=== PATIENT | female | born 1985 | race African-American/Black ===

== ENCOUNTER 2017-02-10 17:45 | Emergency (ER) | payer OTHER ==
[~2017-02-10] VITALS: Ht 171.4 cm; Wt 100.8 kg
[~2017-02-10 17:45] MED LIST: "\\\"ANTIBIOTIC\\\""; ADIPEX-P37.5 M1 PO; ALBUTEROL SULF8.5 GM IH; BENADRYL25 MG PO; BUTALB-APAP-CA1 EAC1 PO; CHOLESTYRAMINE P4 GM PO; ENDOCET 5-3251 EACH PO; EXCEDRIN MIGRA1 EAC3 PO; FIORICET,ESG1 TABLET PO; FLEXERIL10 MG PO; HYCODAN SYRUP480 ML PO; HYDROCODON-ACE1 EAC7 PO; HYDROXYZINE HCL10 MG PO; INNOPRAN XL120 MG PO; MUCUS RELIEF600 M1 PO; NOHOMEMEDS; NORCO 5/3251 TABLET PO; PERCOCET 5/31 TABLET PO; PREDNISONE20 MG PO; PRENATAL TABLE1 EAC3 PO; PROMETHAZINE HC25 M1 PO; ROBITUSSIN NIG118 ML PO; ROXICODONE5 MG PO; SERTRALINE HCL100 MG PO; SYNTHROID100 MCG PO; TESSALON PERLE100 MG PO; TRAZODONE HCL100 MG PO; TYLENOL EXTRA500 MG PO; ZANTAC150 MG PO; ZOLOFT; [UNRECOGNIZED DRUG - REMARK]
[2017-02-10] MEDS ORDERED: VALIUM5 MG PO (20:26)
[2017-02-10 21:00] VITALS: BP 124/81
== END 2017-02-10 21:08 | disposition home or self-care (01) ==
LOC: EME 17:45
DX: M62.838 Other muscle spasm (principal); M54.2 Cervicalgia; M54.9 Dorsalgia, unspecified; V99.XXXA Unspecified transport accident, initial encounter
CPT/HCPCS: 99281; 99283

== ENCOUNTER 2017-06-06 07:53 | Day surgery (SDC) | payer OTHER ==
[~2017-06-06] VITALS: Ht 170.2 cm; Wt 101.6 kg
[~2017-06-06 07:53] MED LIST changes: +MULTIPLE VITAM1 EAC1 PO; +VALIUM5 MG PO
[2017-06-06 08:17] VITALS: BP 136/83
[2017-06-06 13:36] VITALS: BP 142/93
[2017-06-06 15:20] VITALS: BP 133/88
[2017-06-06 20:39] VITALS: BP 155/98
[2017-06-07 00:57] VITALS: BP 131/84
[2017-06-07 04:15] VITALS: BP 125/72
[2017-06-07 06:29] LABS: HEMATOCRIT 35.6 % (36.0-46.0); MCH 27.5 PG (29.0-34.0); MCHC 33.4 G/DL (30.0-36.0); MCV 82.4 FL (83-99); MEAN PLAT.VOLUME 10.4 uM^3 (9.5-12.4); PLATELET COUNT 223 K/uL (156-360); RBC DIS.WIDTH-CV 13.3 % (11.8-14.6); RBC DIS.WIDTH-SD 40.6 % (39-53); RED BLOOD COUNT 4.32 M/uL (3.80-5.20); WHITE BLOOD COUNT 14.2 K/uL (4.1-10.2)
[2017-06-07 07:20] VITALS: BP 129/78
[2017-06-07] MEDS ORDERED: ENDOCET 5-3251 EACH PO (10:39)
== END 2017-06-07 11:30 | disposition home or self-care (01) ==
LOC: SDC → 2SOUTH 12:01 → ENRESERV 12:20 → 2EASTP 13:27 → SDC 14:04 → 2EASTP 06-07 11:30
PROVIDERS: Obstetrics & Gynecology Obstetrics
DX: N84.0 Polyp of corpus uteri (principal); D25.9 Leiomyoma of uterus, unspecified; N94.6 Dysmenorrhea, unspecified; N92.0 Excessive and frequent menstruation with regular cycle; K66.0 Peritoneal adhesions (postprocedural) (postinfection); B37.49 Other urogenital candidiasis
CPT/HCPCS: 85027; 88307; G0378; J0330; J0690; J1100; J1170; J2250; J2405; J2710; J3010; J7120; S0020

== ENCOUNTER 2017-07-11 05:38 | Emergency (ER) | payer OTHER ==
[~2017-07-11] VITALS: Ht 170.2 cm; Wt 99.0 kg
[2017-07-11 06:12] LABS: HEMATOCRIT 39.8 % (36.0-46.0); MCH 26.7 PG (29.0-34.0); MCHC 32.9 G/DL (30.0-36.0); MCV 81.2 FL (83-99); MEAN PLAT.VOLUME 9.9 uM^3 (9.5-12.4); PLATELET COUNT 216 K/uL (156-360); RBC DIS.WIDTH-CV 13.7 % (11.8-14.6); RBC DIS.WIDTH-SD 40.7 % (39-53); WHITE BLOOD COUNT 8.2 K/uL (4.1-10.2)
[2017-07-11 06:22] LABS: CHLORIDE 109 mEq/L (99-109); POTASSIUM 3.7 mEq/L (3.7-5.4); SODIUM 138 mEq/L (136-147)
[2017-07-11 06:23] LABS: GLUCOSE 99 mg/dL (70-99)
[2017-07-11 06:25] LABS: ANION GAP 11 MEQ/L (2-14)
[2017-07-11 06:27] LABS: GFR ESTIMATE (CALCULATED) > 59 mL/min/
[2017-07-11 06:28] LABS: UREA NITROGEN (BUN) 10 mg/dL (9-23)
[2017-07-11] MEDS ORDERED: HYCODAN SYRUP480 ML PO (06:31)
[2017-07-11] MEDS ORDERED: DOXYCYCLINE HY100 MG PO (06:31)
[2017-07-11 06:32] LABS: TROP-I INTERPRETATION NEGATIVE; TROPONIN-I < 0.01 ng/mL (0.0-0.30)
[2017-07-11 07:06] VITALS: BP 144/97
== END 2017-07-11 07:07 | disposition home or self-care (01) ==
LOC: EME 05:38
PROVIDERS: Emergency Medicine
DX: J20.9 Acute bronchitis, unspecified (principal); I10 Essential (primary) hypertension; K21.9 Gastro-esophageal reflux disease without esophagitis; F17.200 Nicotine dependence, unspecified, uncomplicated
CPT/HCPCS: 71020; 80048; 84484; 85027; 93005; 99281; 99284

== ENCOUNTER 2017-07-15 10:03 | Emergency (ER) | payer OTHER ==
[~2017-07-15] VITALS: Ht 170.2 cm; Wt 99.2 kg
[~2017-07-15 10:03] MED LIST changes: +DOXYCYCLINE HY100 MG PO
[2017-07-15 11:02] LABS: HEMATOCRIT 38.7 % (36.0-46.0); MCH 26.7 PG (29.0-34.0); MCHC 33.1 G/DL (30.0-36.0); MCV 80.8 FL (83-99); PLATELET COUNT 241 K/uL (156-360); RBC DIS.WIDTH-CV 13.3 % (11.8-14.6); RBC DIS.WIDTH-SD 39.3 % (39-53); RED BLOOD COUNT 4.79 M/uL (3.80-5.20); WHITE BLOOD COUNT 7.8 K/uL (4.1-10.2)
[2017-07-15 11:22] LABS: CHLORIDE 106 mEq/L (99-109); POTASSIUM 3.7 mEq/L (3.7-5.4); SODIUM 136 mEq/L (136-147)
[2017-07-15 11:24] LABS: GLUCOSE 93 mg/dL (70-99)
[2017-07-15 11:25] LABS: ANION GAP 11 MEQ/L (2-14)
[2017-07-15 11:28] LABS: GFR ESTIMATE (CALCULATED) > 59 mL/min/
[2017-07-15 11:29] LABS: UREA NITROGEN (BUN) 14 mg/dL (9-23)
[2017-07-15 12:25] LABS: TROP-I INTERPRETATION NEGATIVE; TROPONIN-I < 0.01 ng/mL (0.0-0.30)
[2017-07-15] MEDS ORDERED: PREDNISONE50 MG PO (13:31)
[2017-07-15] MEDS ORDERED: PROVENTIL HFA6.7 GM IH (13:31)
[2017-07-15 13:36] VITALS: BP 148/98
== END 2017-07-15 13:40 | disposition home or self-care (01) ==
LOC: EME 10:03
DX: J20.9 Acute bronchitis, unspecified (principal); R07.89 Other chest pain; F17.210 Nicotine dependence, cigarettes, uncomplicated; I10 Essential (primary) hypertension; Z88.6 Allergy status to analgesic agent
CPT/HCPCS: 71020; 80048; 84484; 85027; 93005; 94640; 99281; 99284

== ENCOUNTER 2017-10-13 00:46 | Emergency (ER) | payer OTHER ==
[~2017-10-13] VITALS: Ht 170.2 cm; Wt 101.2 kg
[~2017-10-13 00:46] MED LIST changes: +PREDNISONE50 MG PO; +PROVENTIL HFA6.7 GM IH
[2017-10-13 01:55] LABS: EOSINOPHIL (%) 3.3 % (0-5); EOSINOPHIL COUNT 0.4 K/uL (0-0.3); HEMATOCRIT 35.1 % (36.0-46.0); IMMATURE GRANULOCYTE (%) 0.4 % (0.0-0.7); LYMPHOCYTE COUNT 3.3 K/uL (1.0-2.8); MCH 27.6 PG (29.0-34.0); MCHC 33.3 G/DL (30.0-36.0); MCV 82.8 FL (83-99); MEAN PLAT.VOLUME 10.4 uM^3 (9.5-12.4); MONOCYTE (%) 7.2 % (3-12); MONOCYTE COUNT 0.8 K/uL (0-0.8); NEUTROPHIL (%) 57.1 % (45-76); PLATELET COUNT 212 K/uL (156-360); RBC DIS.WIDTH-SD 42.3 % (39-53); RED BLOOD COUNT 4.24 M/uL (3.80-5.20); WHITE BLOOD COUNT 10.5 K/uL (4.1-10.2)
[2017-10-13 02:13] LABS: CHLORIDE 107 mEq/L (99-109); POTASSIUM 3.8 mEq/L (3.7-5.4); SODIUM 140 mEq/L (136-147)
[2017-10-13 02:16] LABS: GLUCOSE 100 mg/dL (70-99)
[2017-10-13 02:17] LABS: ANION GAP 10 MEQ/L (2-14); TOTAL BILIRUBIN 0.2 mg/dL (0.0-1.0)
[2017-10-13 02:19] LABS: ALKALINE PHOSPHATASE 46 IU/L (3-129); GFR ESTIMATE (CALCULATED) > 59 mL/min/
[2017-10-13 02:20] LABS: UREA NITROGEN (BUN) 18 mg/dL (9-23)
[2017-10-13 02:21] LABS: DIRECT BILIRUBIN 0.1 mg/dL (0.0-0.3)
[2017-10-13 03:20] LABS: ADD MIUA? NO; BILIRUBIN NEGATIVE; BLOOD NEGATIVE; COLOR YELLOW ((YELLOW)); GLUCOSE (STRIP) NEGATIVE; KETONES NEGATIVE; LEUKOCYTES NEGATIVE; NITRITE NEGATIVE; PROTEIN (STRIP) NEGATIVE; SPECIFIC GRAVITY 1.023 (1.000-1.030); UCUL ADDED? NO; UROBILINOGEN 0.2 MG/DL (0.2-1.0)
[2017-10-13] MEDS ORDERED: ENDOCET 5-3251 EACH PO (04:13)
[2017-10-13 06:05] VITALS: BP 126/90
== END 2017-10-13 06:40 | disposition left against medical advice (07) ==
LOC: EME 00:46
PROVIDERS: Emergency Medicine
DX: N83.201 Unspecified ovarian cyst, right side (principal); K21.9 Gastro-esophageal reflux disease without esophagitis; I10 Essential (primary) hypertension; F32.9 Major depressive disorder, single episode, unspecified; Z88.6 Allergy status to analgesic agent; Z88.5 Allergy status to narcotic agent; F17.200 Nicotine dependence, unspecified, uncomplicated
CPT/HCPCS: 74177; 76857; 80048; 80076; 81003; 85025; J2405; J3010